=== PATIENT | female | born 1985 | race Caucasian/White ===

== ENCOUNTER 2016-07-18 14:13 | Outpatient (CLI) | payer MEDICAID | END 2016-07-18 14:14 | disposition home or self-care (01) | DX: M54.2 Cervicalgia (principal); M41.86 Other forms of scoliosis, lumbar region ==

== ENCOUNTER 2017-04-27 14:36 | Outpatient (CLI) | payer OTHER ==
[2017-04-27 15:14] LABS: HEMOGLOBIN A1C 0.59 g/dL
[2017-04-27 16:58] LABS: FOLLICLE STIMULATING HORMONE 5.08 mIU/mL
[2017-04-27 16:59] LABS: LUTEINIZING HORMONE 5.59 mIU/mL
[2017-05-01 21:02] LABS: TEST RESULT REPORT
== END 2017-04-27 14:37 | disposition home or self-care (01) ==
LOC: LAB 14:36
PROVIDERS: ATTEND Registered Nurse
DX: L68.0 Hirsutism (principal)
CPT/HCPCS: 36415; 81599; 82626; 82670; 83001; 83002; 83036; 84402; 84403

== ENCOUNTER 2017-05-03 12:31 | Outpatient (CLI) | payer OTHER ==
--- NOTE | 2017-05-03 18:19 | Ultrasound Report ---
PELVIC ULTRASOUND: 05/03/2017 CLINICAL INDICATION: Pain. TECHNIQUE: Transabdominal pelvic ultrasound performed for global evaluation. Transvaginal pelvic ul trasound performed for detailed evaluation. Real-time scanning performed and static images obtained. The uterus is anteverted, measuring 7.9 x 5.9 x 4.5 cm. The endometrial echo complex measures 11 mm. No focal myometrial lesion is seen. There is a 6 mm echogenic avascular nodule in the cervix, whic h may represent a small polyp. The right ovary measures 3.7 x 2.4 x 2.2 cm, and contains a 1.7 cm he morrhagic cyst. The left ovary measures 2.6 x 2.1 x 1.8 cm, and appears unremarkable. No free fluid is present. IMPRESSION: 1. HEMORRHAGIC RIGHT OVARIAN CYST. 2. POSSIBLE TINY POLYP OR THROMBUS IN THE ENDOCERVICAL CANAL. JOB #: [id number] EXT JOB #:[id number]
== END 2017-05-03 12:32 | disposition home or self-care (01) ==
LOC: DI 12:31
PROVIDERS: ATTEND Registered Nurse
DX: N83.201 Unspecified ovarian cyst, right side (principal)
CPT/HCPCS: 76830; 76856

== ENCOUNTER 2017-09-04 08:00 | Outpatient (CLI) | payer OTHER | END 2017-09-04 23:59 | disposition home or self-care (01) | LOC: LAB.R 08:00 | PROVIDERS: ATTEND Obstetrics & Gynecology | DX: N76.0 Acute vaginitis (principal) | CPT/HCPCS: 87480; 87510; 87660 ==

== ENCOUNTER 2018-03-19 08:00 | Outpatient (CLI) | payer OTHER | END 2018-03-19 08:01 | disposition home or self-care (01) | LOC: LAB.R 08:00 | PROVIDERS: ATTEND Obstetrics & Gynecology | DX: N76.0 Acute vaginitis (principal) | CPT/HCPCS: 87480; 87510; 87660 ==

== ENCOUNTER 2018-09-18 08:00 | Outpatient (CLI) | payer MEDICAID | END 2018-09-18 23:59 | disposition home or self-care (01) | LOC: LAB.R 08:00 | PROVIDERS: ATTEND Registered Nurse | DX: R10.32 Left lower quadrant pain (principal) | CPT/HCPCS: 87491; 87591 ==

== ENCOUNTER 2018-09-18 08:00 | Outpatient (CLI) | payer MEDICAID | END 2018-09-18 23:59 | disposition home or self-care (01) | LOC: LAB.R 08:00 | PROVIDERS: ATTEND Registered Nurse | DX: R10.32 Left lower quadrant pain (principal) | CPT/HCPCS: 87086 ==

== ENCOUNTER 2021-02-19 09:05 | Outpatient (CLI) | payer OTHER ==
[2021-02-19 15:01] LABS: BASOPHILS % (AUTO) 0.6 %; EOSINOPHILS # (AUTO) 0.2 10^3/uL (0.0-0.7); EOSINOPHILS % (AUTO) 3.2 %; HCT - HEMATOCRIT 45.6 % (37.0-47.0); HGB - HEMOGLOBIN 14.9 g/dL (12.0-16.0); LYMPHOCYTES # (AUTO) 1.9 10^3/uL (1.5-3.5); LYMPHOCYTES % (AUTO) 29.5 %; MEAN CORPUSCULAR HEMOGLOBIN 30.9 pg (27.0-31.0); MEAN CORPUSCULAR HGB CONC 32.7 g/dL (32.0-36.0); MEAN CORPUSCULAR VOLUME 94.6 fL (81.0-99.0); MEAN PLATELET VOLUME 12.5 fL (7.9-10.8); MONOCYTES # (AUTO) 0.4 10^3/uL (0.0-1.0); MONOCYTES % (AUTO) 5.7 %; NEUTROPHILS # (AUTO) 3.8 10^3/uL (1.5-6.6); NEUTROPHILS % (AUTO) 60.8 %; PLT - PLATELET COUNT 227 10^3/uL (130-450); RED BLOOD COUNT 4.82 10^6/uL (4.20-5.40); WHITE BLOOD COUNT 6.3 x10^3/uL (4.8-10.8)
[2021-02-19 15:50] LABS: % IRON SATURATION 35 % (20-50); IRON 131 ug/dL (28-170); TOTAL IRON BINDING CAPACITY 379 ug/dL (250-450); TRANSFERRIN 271 mg/dL (192-382)
== END 2021-02-19 09:06 | disposition home or self-care (01) ==
LOC: LAB.S 09:05
PROVIDERS: ATTEND Nurse Practitioner Family
DX: R79.0 Abnormal level of blood mineral (principal)
CPT/HCPCS: 36415; 82728; 83540; 84466; 85025

== ENCOUNTER 2022-04-18 08:00 | Outpatient (CLI) | payer OTHER | END 2022-04-18 23:59 | disposition home or self-care (01) | LOC: LAB.S 08:00 | PROVIDERS: ATTEND Physician Assistant | DX: J02.9 Acute pharyngitis, unspecified (principal) | CPT/HCPCS: 87070 ==